=== PATIENT | female | born 1960 | race Two or more races ===

== ENCOUNTER 2022-08-29 10:42 | Outpatient (CLI) | payer MEDICARE, OTHER | END 2022-08-29 23:59 | disposition home or self-care (01) | LOC: LAB 10:42 | PROVIDERS: ATTEND Surgery | DX: Z01.812 Encounter for preprocedural laboratory examination (principal); Z20.822 Contact with and (suspected) exposure to COVID-19 | CPT/HCPCS: U0003; C9803 ==

== ENCOUNTER 2022-09-03 07:11 | Inpatient (IN) | payer MEDICARE, OTHER ==
[2022-09-03] VITALS (9 sets, daily range): BP systolic 124–150; BP diastolic 70–84
[~2022-09-03] VITALS: Ht 162.6 cm; Wt 116.8 kg
[~2022-09-03 07:11] MED LIST: ANESTHESIA TRAY IN PYXIS 1 EA TRAY MC ONE
[2022-09-03] MEDS ORDERED: BUPIVACAINE 0.5 % PF 150 MG/30 ML VIAL ONE (07:28)
[2022-09-03] MEDS ORDERED: BUPIVACAINE MPF 0.5% W/EPI INJ 30 ML VIAL ONE (07:28)
[2022-09-03] MEDS ORDERED: LIDOCAINE HCL/MPF 1% 30 ML VIAL IJ ONE (07:29)
--- NOTE | 2022-09-03 07:50 | NUR ---
RN ADMITTING NOTES: PATIENT ARRIVED IN THE UNIT @0740AM, AMBULATORY, ALERT AND ORIENTED X 4 AND ABLE TO VERBALIZED NEEDS. VS WNL. CONSENT SIGNED FOR THE PROCEDURE. INSERTED IV ACCESS ON RFA GAUGE 18,PATENT,INTACT AND FLUSHING WELL. PT CELLPHONE LEFT IN THE NURSING STATION PROPERLY LABELLED AND SECURED. PT WAS PICKED UP @ 0830 WITH SURGERY RN AND TRANSFORTER VIA BED ACCOMPANIED BY DAUGHTER. PATIENT LEFT THE UNIT STABLE.
[2022-09-03] MEDS ORDERED: ROCURONIUM BROMIDE 50 MG/5 ML ONE ×3 (08:00→11:14)
[2022-09-03] MEDS ORDERED: HYDROMORPHONE INJ 2 MG/ML DISP.SYRIN ONE (08:00)
[2022-09-03] MEDS ORDERED: ALBUTEROL SULFATE 8 GM HFA.AER.AD ONE (08:27)
[2022-09-03] MEDS ORDERED: METHYLENE BLUE 10 ML VIAL ONE (08:30)
[2022-09-03] MEDS ORDERED: HEPARIN SODIUM, PORCINE 5000 UNITS/1 ML VIAL ONE (08:40)
[2022-09-03] MEDS ORDERED: LIDOCAINE 1% INJ 50 ML MDV IJ ONE (09:23)
[2022-09-03] MEDS ORDERED: DESFLURANE 240 ML BOTTLE IH ONE (09:44)
[2022-09-03] MEDS: METOCLOPRAMIDE HCL 10 MG/2 ML VIAL IV SCH ×2 (12:00→17:37)
[2022-09-03] MEDS ORDERED: HYDROCODONE/APAP 5/325MG TABLET PO PRN ×2 (12:00→13:00)
[2022-09-03] MEDS ORDERED: FENTANYL PF 100MCG/2ML AMPUL IV PRN (12:00)
[2022-09-03] MEDS ORDERED: ACETAMINOPHEN ES 500 MG TABLET PO PRN (12:00)
[2022-09-03] MEDS ORDERED: HEPARIN SODIUM, PORCINE 5000 UNITS/1 ML VIAL SQ SCH ×4 (13:00→21:28)
--- NOTE | 2022-09-03 14:00 | NUR ---
RN NOTES: RECEIVED PT FROM SURGERY S/P GASTRECTOMY, HIATAL HERNIA REPAIR,LIVER BIOPSY,ENDOSCOPY EGD UNDER GENERAL ANESTHESIA. PT ALERT AND ORIENTED X 4, BUT CURRENTLY GROGGY BUT EASILY AROUSABLE BY VERBAL STIMULI. PT ACCOMPANIED BY OR NURSE SALAS VIA BED. PT ABLE TO VERBALIZED NEEDS. NO SOB OR CARDIAC DISTRESS NOTED. RECEIVED REPORT FROM SHEKHAR MARINA WITH ORDERS: MONITOR O2 SATURATION FOR 24HOURS.PAIN MEDS ORDERED. PER RN LACTATION DEVAN START SIPS OF WATER 1 HOUR AFTER SURGERY, AFTER 2 HRS ADVANCE TO 30MLOF WATER EVERY HOUR, IF TOLERATED GIVE 30ML OF PROTEIN SHAKES EVERY HOUR.STRICT NPO, ELEVATE HOB,ICE PACKS IN ABDOMEN HOURLY.CRUSH MEDS PLEASE. ORDERS NOTED AND CARRIED OUT. ORDERS NOTED AND CARRIED OUT. WITH IV ACCESS ON RFA GAUGE 18, PATENT, INTACT AND SALINE LOCKED. NOTED WITH SURGICAL STERI STRIPS (5) ON HER ABDOMEN WITH NO MINIMAL DISCHARGES/BLOOD, LOAN DRAIN NOTED WITH SEROUS/BLOOD DISCHARGE AND ON NEGATIVE PRESSURE.. SAFETY MEASURES INITIATED: BED LOCKED AND IN LOWEST POSITION, SIDE RAILS UP X 2. CALL LIGHT IN EASY REACH FOR HELP. KEPT RESTED AND COMFORTABLE. HOB ELEVATED. WILL MONITOR ACCORDINGLY.
--- NOTE | 2022-09-03 14:17 | NUR ---
RN NOTES: INFORMED ORACLE REPORTS DEVELOPER DEVAN IF SHE WANTED US TO ORDER IV FLUIDS, AND ORACLE REPORTS DEVELOPER STATED:" NO IV FLUIDS PLS START HER ON ORAL SIPS OF WATER AND ADVANCE, SEE MISC ORDER. START HEPARIN 8HRS AFTER FIRST DOSE IN OR- HEPARIN SUBCUTANEOUS GIVEN @0858AM. ORDERS NOTED AND CARRIED OUT.
--- NOTE | 2022-09-03 14:30 | NUR ---
RN NOTES: PATIENT HAD SIPS OF WATER VIA MEDICINE CUP. PT TOLERATED WELL. PT IS MORE AWAKE,NO DIZZINESS,NO VOMITING.
[2022-09-03] MEDS ORDERED: ONDANSETRON HCL/PF 4 MG/2 ML VIAL IV PRN (15:30)
--- NOTE | 2022-09-03 15:36 | NUR ---
RN NOTES: CPAP MACHINE BROUGHT BY FAMILY AND PER ANESTHESIOLOGIST NEED TO PUT CPAP ON WHEN SLEEPING. FAMILY AND PT MADE AWARE.CPAP AT BED SIDE.
[2022-09-03] MEDS ORDERED: ALBU18HF2 IH (15:38)
[2022-09-03] MEDS ORDERED: [UNRECOGNIZED DRUG - CODE] PO (15:38)
[2022-09-03] MEDS ORDERED: ERGO500093 PO (15:38)
[2022-09-03] MEDS ORDERED: FURO40TA5 PO (15:38)
[2022-09-03] MEDS ORDERED: FLUT200B INH (15:38)
[2022-09-03] MEDS ORDERED: METF-442 PO (15:38)
[2022-09-03] MEDS ORDERED: LEVO125T8 PO (15:38)
[2022-09-03] MEDS ORDERED: SITA100T PO (15:38)
[2022-09-03] MEDS ORDERED: FLUT16SP16 BNOSTRILS (15:38)
[2022-09-03] MEDS ORDERED: LINA290C PO (15:38)
[2022-09-03] MEDS ORDERED: INSU300I SQ (15:38)
[2022-09-03] MEDS ORDERED: DULA1.5P SQ (15:38)
[2022-09-03] MEDS ORDERED: POLY15DR17 EACHEYE (15:38)
[2022-09-03] MEDS ORDERED: LORA10TA7 PO (15:38)
[2022-09-03] MEDS ORDERED: BACL10TA PO (15:38)
[2022-09-03] MEDS ORDERED: FENO160T PO (15:38)
[2022-09-03] MEDS ORDERED: DICL100G34 TP (15:38)
[2022-09-03] MEDS ORDERED: ASPI-1420 PO (15:38)
[2022-09-03] MEDS ORDERED: DULO30CA52 PO (15:38)
[2022-09-03] MEDS ORDERED: CIPR500T5 MT (15:38)
[2022-09-03] MEDS ORDERED: ESOM40CA52 PO (15:38)
[2022-09-03] MEDS ORDERED: LOSA1TAB39 PO (15:38)
[2022-09-03] MEDS ORDERED: IBUP-1957 PO (15:38)
[2022-09-03] MEDS ORDERED: SIMV10TA98 PO (15:38)
--- NOTE | 2022-09-03 17:00 | NUR ---
RN NOTES: PATIENT HAD A WALK AROUND THE UNITS 3X, NO SOB OR CARDIAC DISTRESS NOTED.RN ACCOMPANIED PT.
--- NOTE | 2022-09-03 17:30 | NUR ---
RN NOTES: PT HAD SIP OF WATER 30ML, TOLERATING WELL, INSTRUCTED PT TO DRINK SLOWLY FROM MEDS CUP. PT TOLERATED WELL.
[2022-09-03] MEDS: HYDROMORPHONE 1 MG/1 ML DISP.SYRIN IV PRN (17:45)
--- NOTE | 2022-09-03 18:00 | NUR ---
RN NOTES: PT VOMITED CLEAR BROWNISH COLORED VOMITUS, METOCLOPRAMIDE GIVEN IVP,PAIN MEDS GIVEN TO PATIENT. REPORTED TO [employer] FERNIE AND WAITING FOR RESPONSE. CURRENTLY PT IS SLEEPING WITH CPAP MACHINE, NO SOB OR CARDIAC DISTRESS. DAUGHTER AT BEDSIDE.
[2022-09-03] MEDS ORDERED: DEXTROSE 50%-WATER 50 ML DISP.SYRIN IV PRN (18:30)
--- NOTE | 2022-09-03 19:00 | NUR ---
alert and orientated x4 abd soft lap sites with steristrip CDI faint BS audible with auscultation she denies passing gas or belching she is sipping the h20 but she is "afraid she will throw up" head of the bed elevated LOANratt emptied 20 ml blood drainage instructed her she needed to get oob to ambulate to get the gas moving
--- NOTE | 2022-09-03 19:00 | NUR ---
RN NOTES: RECEIVED ORDER FROM NAYELY HARTMAN D5 11/04 NS +20 MEQ @150ML/HR, ENSURE DAILY (30ML EVERY HOUR TOLERATED). RN SENT 08/23/22 LABS TO Yusef SAENZ LEVEL 4.4. PENDING FOR RESPONSE.
--- NOTE | 2022-09-03 19:20 | NUR ---
RN NOTES: PATIENT ASLEEP, EASILY AROUSED WITH VERBAL STIMULI. NO SOB OR CARDIAC DISTRESS, CURRENTLY ON CPAP. IV ACCESS ON RFA GAUGE 18 PATENT, INTACT AND SALINE LOCKED. SURGICAL INCISION WITH STERI STRIPS NOTED AND LOAN DRAIN (EMPTIED SEROUS/BLOODY DRAINAGE)MAINTAINED NEGATIVE PRESSURE. ALL SPECIFIC ENDORSEMENT GIVEN TO RN O2 SATURATION CONTINUOUS MONITORING X 24HRS, ICE PACK ON ABDOMEN HOURLY, STRICT I AND O, PAIN MEDS N/V MANAGEMENT ORDER., SIPS OF WATER/30ML WATER HOURLY IF NO SIGNS OF N/V. IF WATER TOLERATED GIVE 30ML PROTEIN SHAKE ORDERED. .PT SHOULD BE ON CPAP WHEN SLEEPING. MAINTAINED SAFETY MEASURES: HOB ELEVATED, SIDE RAILS UP X 2, CALL LIGHT IN EASY REACH FOR HELP. ENDORSED FOR BEBE.
[2022-09-03] MEDS: ENSURE ENLIVE 237 ML LIQUID (VANILLA) PO SCH (19:30)
[2022-09-03 20:11] LABS: CALCIUM, SERUM 8.6 mg/dL (8.5-10.1); CREATININE 0.9 mg/dL (0.6-1.3); POTASSIUM 4.5 mmol/L (3.5-5.1)
[2022-09-03] MEDS: Potassium Chloride 20 MEQ in IV D5/0.45 NACL 1,000 ML IV PRN (22:10)
[2022-09-03] MEDS: BLOOD SUGAR DIAGNOSTIC 1 EACH STRIP IN SCH (22:31)
[2022-09-03] MEDS: INSULIN REGULAR, HUMAN 100 UNIT/ML 3 ML VIAL SQ PRN (22:36)
[2022-09-04] VITALS (7 sets, daily range): BP systolic 117–129; BP diastolic 63–78
[2022-09-04] MEDS: METOCLOPRAMIDE HCL 10 MG/2 ML VIAL IV SCH ×4 (00:08→17:08)
[2022-09-04] MEDS: HEPARIN SODIUM, PORCINE 5000 UNITS/1 ML VIAL SQ SCH ×3 (00:51→16:33)
[2022-09-04] MEDS: Potassium Chloride 20 MEQ in IV D5/0.45 NACL 1,000 ML IV PRN ×2 (04:20→13:12)
[2022-09-04] MEDS: HYDROMORPHONE 1 MG/1 ML DISP.SYRIN IV PRN ×3 (05:31→20:24)
--- NOTE | 2022-09-04 05:45 | NUR ---
CLOSING NOTES: ALERT AND ORIENTATED X4 AMBULATED X4 THE CORRIDOR THIS 12 HOURS SAT IN CHAIR DENIES PASSING GAS SHEA AND ANNA GAVE HER THE DISCHARGE INSTRUCTIONS TO REVIEW NO ICE NO STRAWS NO GUM CHEWING MAY SHOWER 2 DAYS AFTER SURGERY NO LIFTING ANYTHING HEAVY NO DRIVING EXPLAINED TO HER ICE AND GUM CAUSE GAS IN THE COLON AND SHE NEEDS WALK AND NOT LIE IN BED SHE NEED TO SIT AND MOVE
[2022-09-04 05:50] LABS: BASOPHILS % (AUTO) 0.2 % (0.0-2.0); EOSINOPHILS % (AUTO) 0.1 % (0.0-6.0); HEMATOCRIT 41 % (33-45); HEMOGLOBIN 13.3 g/dL (11.5-14.8); LYMPHOCYTES # (AUTO) 1.4 K/uL (0.8-4.8); LYMPHOCYTES % (AUTO) 15.2 % (20.0-44.0); MEAN CORPUSCULAR HGB CONC 33 g/dl (31.0-36.0); MEAN CORPUSCULAR VOLUME 84 fL (82-100); MONOCYTES # (AUTO) 0.7 K/uL (0.1-1.30); MONOCYTES % (AUTO) 7.6 % (2.0-12.0); NEUTROPHILS % (AUTO) 76.9 % (43.0-81.0); PLATELET COUNT (AUTO) 287 K/uL (150-450); RED BLOOD CELL COUNT(AUTO) 4.86 MIL/uL (4.0-5.2); WHITE BLOOD COUNT (AUTO) 9.1 K/uL (4.3-11.0)
[2022-09-04] MEDS: BLOOD SUGAR DIAGNOSTIC 1 EACH STRIP IN SCH ×4 (06:11→21:47)
[2022-09-04 06:23] LABS: CALCIUM, SERUM 8.6 mg/dL (8.5-10.1); CREATININE 0.9 mg/dL (0.6-1.3); MAGNESIUM 2.1 mg/dL (1.8-2.4); PHOSPHORUS 3.3 mg/dL (2.5-4.9); POTASSIUM 4.1 mmol/L (3.5-5.1)
[2022-09-04 06:37] LABS: ALBUMIN 3.4 g/dL (3.4-5.0); BILIRUBIN,DIRECT 0.1 mg/dL (0.0-0.2); BILIRUBIN,TOTAL 0.5 mg/dL (0.2-1.0); TOTAL PROTEIN, SERUM 7.3 g/dL (6.4-8.2)
[2022-09-04] MEDS: INSULIN REGULAR, HUMAN 100 UNIT/ML 3 ML VIAL SQ PRN ×4 (06:41→21:53)
[2022-09-04 06:43] LABS: T4 (THYROXINE) 10.8 ug/dL (4.7-13.3); THYROID STIMULATING HORMONE 0.763 uIU/mL (0.358-3.74)
--- NOTE | 2022-09-04 07:30 | NUR ---
RN OPENING NOTE RECEIVED PATIENT IN BED, ASLEEP BUT EASY TO AROUSE AND RESPONSIVE. AFEBRILE AND NOT ON ANY FORM OF ACUTE DISTRESS. ON CPAP MACHINE. WITH IV ACCESS ON RIGHT FOREARM WITH D5 1/2NS +KCL 20MEQ REGULATED AT 150ML/HR. SAFETY MEASURES IN PLACE. KEPT BED IN LOCKED AND IN LOW POSITION. SIDE RAILS UP. ADVISED TO USE THE CALL LIGHT WHEN IN NEED OF ASSISTANCE.
[2022-09-04] MEDS ORDERED: Medication Not On Formulary EA (Losartan/Hydrochlorothiazide (Losartan-Hctz 100-25 Mg Ta PO SCH (09:00)
[2022-09-04] MEDS: LEVOTHYROXINE SODIUM 125 MCG TABLET PO SCH (10:00)
[2022-09-04] MEDS: ASPIRIN EC 81 MG TABLET.DR PO SCH (10:00)
[2022-09-04] MEDS: PANTOPRAZOLE 40 MG/PACK PACK PO SCH (10:00)
[2022-09-04] MEDS: DULOXETINE HCL 30 MG CAPSULE.DR PO SCH (10:00)
[2022-09-04] MEDS: ENSURE ENLIVE 237 ML LIQUID (VANILLA) PO SCH (10:01)
[2022-09-04] MEDS: HYDROCHLOROTHIAZIDE 25 MG TABLET PO SCH (10:06)
[2022-09-04] MEDS: LOSARTAN POTASSIUM 50 MG TABLET PO SCH (10:06)
[2022-09-04] MEDS ORDERED: DIATR MEGLU/DIATRIZOATE SODIUM 120 ML BOTTLE (GASTROGRAPHIN) ONE (14:09)
[2022-09-04] MEDS: GLUCERNA SHAKE 237 ML CAN PO SCH (17:37)
--- NOTE | 2022-09-04 18:30 | NUR ---
RN CLOSING NOTE PATIENT IN BED, ALERT AND ORIENTED X4 WITH DAUGHTER AT BEDSIDE. AFEBRILE AND NOT IN ANY FORM OF ACUTE DISTRESS. BREATHING EVEN AND NON LABORED. NO C/O PAIN OR DISCOMFORT AT THIS TIME. WITH IV ACCESS ON RIGHT FOREARM 18G, INFUSING WITH D5 1/2 NS + 20MEQ KCL REGULATED AT 150ML/HR. WITH INTACT LOAN DRAINING WITH SANGUINEOUS OUTPUT AT APPROX. 98ML THROUGHOUT THE SHIFT. MONITORED FOR ANY S/SX. OF HYPO/HYPERGLYCEMIA. X-RAY ON UPPER GI DONE AND NOTED WITH GASTRIC SLEEVE WITH NO EVIDENCE OF LEAK. MEDICATED ORDERED. MAINTAINED ON CLEAR LIQUID DIET. SAFETY MEASURES IN PLACE. KEPT BED IN LOCKED AND IN LOW POSITION. SIDE RAILS UP. ADVISED TO USE THE CALL LIGHT WHEN IN NEED OF ASSISTANCE. ENCOURAGED AMBULATION. ALL NURSING NEEDS ATTENDED.
[2022-09-04] MEDS: Potassium Chloride 20 MEQ in IV D5/0.45 NACL 1,000 ML IV SCH (19:41)
--- NOTE | 2022-09-04 20:18 | NUR ---
MS RN OPENING NOTE PATIENT AWAKE IN BED, ALERT/ORIENTED X 4, PT ABLE TO MAKE NEEDS KNOWN. PATIENT C/O 8/10 ABDOMINAL PAIN, ICE PACK GIVEN, WILL ADMINISTER PAIN MEDS ORDERED. PT STABLE ON RA, NO S/S OF DISTRESS OR SOB NOTED, BREATHING EVEN AND UNLABORED. IV ACCESS ON RFA #18G INTACT AND INFUSING D5 1/2 NS WITH 20 MEQ KCL @ 150 ML/HR. SAFETY MEASURES IN PLACE: CALL LIGHT WITHIN REACH, SIDE RAILS UP X 2, BED LOCKED IN LOWEST POSITION, BED ALARM ON. WILL CONTINUE TO MONITOR PATIENT
[2022-09-04] MEDS ORDERED: INSULIN GLARGINE, 100 UNIT/ML CARTRIDGE SQ SCH (22:00)
[2022-09-05] MEDS: METOCLOPRAMIDE HCL 10 MG/2 ML VIAL IV SCH ×3 (00:55→12:13)
[2022-09-05] MEDS: HEPARIN SODIUM, PORCINE 5000 UNITS/1 ML VIAL SQ SCH ×2 (00:58→09:32)
[2022-09-05] MEDS: HYDROCODONE/APAP 5/325MG TABLET PO PRN ×2 (01:06→09:07)
--- NOTE | 2022-09-05 01:18 | NUR ---
MS RN NOTE PATIENT C/O OF ABDOMEN AND SHOULDER PAIN. REMOVED NORCO 5-325 MG PO AND CRUSHED MED HOWEVER PATIENT REFUSED AND STATED NORCO DOESN'T HELP HER. MEDICATION WASTED WITH SHEKHAR GARCIA
[2022-09-05] MEDS: HYDROMORPHONE 1 MG/1 ML DISP.SYRIN IV PRN (01:20)
[2022-09-05] MEDS: Potassium Chloride 20 MEQ in IV D5/0.45 NACL 1,000 ML IV SCH ×2 (02:37→09:31)
[2022-09-05 05:57] LABS: BASOPHILS % (AUTO) 0.6 % (0.0-2.0); EOSINOPHILS % (AUTO) 1.8 % (0.0-6.0); HEMATOCRIT 37 % (33-45); HEMOGLOBIN 12.1 g/dL (11.5-14.8); LYMPHOCYTES # (AUTO) 1.6 K/uL (0.8-4.8); LYMPHOCYTES % (AUTO) 28.1 % (20.0-44.0); MEAN CORPUSCULAR HGB CONC 33 g/dl (31.0-36.0); MEAN CORPUSCULAR VOLUME 84 fL (82-100); MONOCYTES # (AUTO) 0.4 K/uL (0.1-1.30); MONOCYTES % (AUTO) 6.9 % (2.0-12.0); NEUTROPHILS # (AUTO) 3.7 K/uL (1.8-8.9); NEUTROPHILS % (AUTO) 62.6 % (43.0-81.0); PLATELET COUNT (AUTO) 208 K/uL (150-450); RED BLOOD CELL COUNT(AUTO) 4.37 MIL/uL (4.0-5.2); WHITE BLOOD COUNT (AUTO) 5.9 K/uL (4.3-11.0)
[2022-09-05] MEDS: BLOOD SUGAR DIAGNOSTIC 1 EACH STRIP IN SCH (06:49)
[2022-09-05] MEDS: INSULIN REGULAR, HUMAN 100 UNIT/ML 3 ML VIAL SQ PRN (06:59)
[2022-09-05 07:00] LABS: CALCIUM, SERUM 8.1 mg/dL (8.5-10.1); CREATININE 0.6 mg/dL (0.6-1.3); MAGNESIUM 1.9 mg/dL (1.8-2.4); PHOSPHORUS 2.7 mg/dL (2.5-4.9)
--- NOTE | 2022-09-05 07:20 | NUR ---
MS RN OPENING NOTE RECEIVED PT AWAKE, AMBULATING IN HALLWAY. A/O X4, COOPERATIVE AND ABLE TO MAKE NEEDS KNOWN. ON RA WITH NO SIGNS OF SOB OR LABORED BREATHING. PT C/O ABDOMINAL PAIN AND UPPER LEFT SHOULDER DISCOMFORT. EXPLAINED TO PT THAT WE WILL TRY THE NORCO 5-325 1 TABLET INSTEAD OF DILAUDID 1MG/1ML TO ASSESS IF IT HELPS WITH CONSTIPATION. PT VERBALIZED UNDERSTANDING AND AGREED. IV RFA #18G RUNNING D5 1/2 NS + 20 MEQ KCL @150 ML/HR, PATENT AND INTACT. LOAN DRAIN ON RUQ IN PLACE WITH LIGHT BLOODY DRAINAGE OUTPUT NOTED. SAFETY MEASURES IMPLEMENTED: BED IN LOW AND LOCKED POSITION, SIDE RAILS UP X2, CALL LIGHT WITHIN REACH. WILL CONTINUE MONITOR AND ASSIST.
--- NOTE | 2022-09-05 07:27 | NUR ---
MS RN CLOSING NOTE PATIENT AWAKE AMBULATING IN HALLWAY, ALERT/ORIENTED X 4, PT ABLE TO MAKE NEEDS KNOWN. PT STABLE ON RA, NO S/S OF DISTRESS OR SOB NOTED, BREATHING EVEN AND UNLABORED, PATIENT USED CPAP WHILE SLEEPING. IV ACCESS ON RFA #18G INTACT AND INFUSING D5 1/2 NS WITH 20 MEQ KCL @ 150 ML/HR. RUQ LOAN DRAIN INTACT WITH 150 ML SANGUINOUS OUTPUT. MEDICATIONS GIVEN ORDERED, PT NEEDS MET THROUGHOUT SHIFT. SAFETY MEASURES IN PLACE: CALL LIGHT WITHIN REACH, SIDE RAILS UP X 2, BED LOCKED IN LOWEST POSITION. ENDORSED TO DAYSHIFT NURSE FOR CONTINUITY OF CARE
[2022-09-05 08:00] VITALS: BP 133/71
[2022-09-05] MEDS: ENSURE ENLIVE 237 ML LIQUID (VANILLA) PO SCH (08:00)
[2022-09-05] MEDS: GLUCERNA SHAKE 237 ML CAN PO SCH ×2 (08:01→12:14)
[2022-09-05] MEDS: LEVOTHYROXINE SODIUM 125 MCG TABLET PO SCH (08:01)
[2022-09-05] MEDS ORDERED: INSULIN REGULAR, HUMAN 100 UNIT/ML 3 ML VIAL SQ PRN (08:30)
[2022-09-05] MEDS ORDERED: DEXTROSE 50%-WATER 50 ML DISP.SYRIN IV PRN (08:30)
[2022-09-05] MEDS ORDERED: *INSULIN REGULAR(HUMULIN R)HUM 100 UNIT/ML VIAL SQ PRN (08:30)
[2022-09-05] MEDS ORDERED: INSULIN GLARGINE, 100 UNIT/ML CARTRIDGE SQ SCH (09:00)
[2022-09-05] MEDS: PANTOPRAZOLE 40 MG/PACK PACK PO SCH (09:15)
[2022-09-05 09:16] VITALS: BP 133/71
[2022-09-05] MEDS: DULOXETINE HCL 30 MG CAPSULE.DR PO SCH (09:16)
[2022-09-05] MEDS: LOSARTAN POTASSIUM 50 MG TABLET PO SCH (09:16)
[2022-09-05] MEDS: ASPIRIN EC 81 MG TABLET.DR PO SCH (09:16)
[2022-09-05] MEDS: HYDROCHLOROTHIAZIDE 25 MG TABLET PO SCH (09:16)
[2022-09-05] MEDS ORDERED: BLOOD SUGAR DIAGNOSTIC 1 EACH STRIP VI SCH (12:00)
[2022-09-05] MEDS ORDERED: Hydrocodone/Apap 5/325MG PO (12:31)
[2022-09-05] MEDS ORDERED: HYDR-3972 PO (15:18)
--- NOTE | 2022-09-05 15:54 | NUR ---
RN DISCHARGED NOTES PT DISCHARGED HOME IN STABLE CONDITION. A/O X4. ABLE TO MAKE NEEDS KNOWN. ALL BELONGINGS ACCOUNTED FOR AND PT's DAUGHTER ADIN SIGNED BELONGINGS LIST. IV ACCESS ON RFA G#18 REMOVED WITH NO ACTIVE BLEEDING NOTED, DRY PRESSURE DRESSING APPLIED AT SITE. PHOTOS OF SURGICAL SITES ON ABDOMEN TAKEN AND FILED ON HER CHART. DEMONSTRATED TO PT AND HER DAUGHTER ON HOW TO TAKE CARE AND EMPTY DRAINAGE OF HER LOAN DRAIN ON RUQ, BOTH VERBALIZED UNDERSTANDING AND PERFORMED RETURN DEMONSTRATION. HEALTH TEACHINGS/DISCHARGE INSTRUCTIONS GIVEN TO PT AND DAUGHTER, BOTH VERBALIZED UNDERSTANDING. NAME ARMBAND REMOVED. PT LEFT UNIT @ 1545 VIA WHEELCHAIR ACCOMPANIED BY CHESTER MILNER AND PT'S DAUGHTER.
[2022-09-09] MEDS ORDERED: ERGOCALCIFEROL (VITAMIN D 2) 50,000 UNIT CAPSULE PO SCH (09:00)
== END 2022-09-05 15:50 | disposition home health service (06) | DRG 621 ==
LOC: DS 07:11 → MED 07:23
PROVIDERS: ADMIT Nurse Practitioner Acute Care; ATTEND Nurse Practitioner Acute Care
PROC: 0DB64Z3 Excision of Stomach, Percutaneous Endoscopic Approach, Vertical (ICD-10-PCS; principal; 2022-09-03)
PROC: 0FB04ZX Excision of Liver, Percutaneous Endoscopic Approach, Diagnostic (ICD-10-PCS; 2022-09-03)
DX: E66.01 Morbid (severe) obesity due to excess calories (principal); Z20.822 Contact with and (suspected) exposure to COVID-19; K21.9 Gastro-esophageal reflux disease without esophagitis; K66.0 Peritoneal adhesions (postprocedural) (postinfection); K44.9 Diaphragmatic hernia without obstruction or gangrene; K76.0 Fatty (change of) liver, not elsewhere classified; Z90.49 Acquired absence of other specified parts of digestive tract; E03.9 Hypothyroidism, unspecified; E11.65 Type 2 diabetes mellitus with hyperglycemia; I10 Essential (primary) hypertension; Z86.711 Personal history of pulmonary embolism; Z79.4 Long term (current) use of insulin; Z79.899 Other long term (current) drug therapy; Z79.84 Long term (current) use of oral hypoglycemic drugs; Z79.82 Long term (current) use of aspirin; Z79.51 Long term (current) use of inhaled steroids
CPT/HCPCS: 36415; 74246-TC; 80048-TC; 80076-TC; 82962-TC; 83735-TC; 84100-TC; 84436-TC; 84443-TC; 85025-TC; 87081-TC; A6403; G0378; J0330; J0690; J1100; J1170; J1644; J1815; J1885; J2405; J2704; J2765; J3480; J3490; J7030; Q9963; Q9968